=== PATIENT | male | born 1965 | race Caucasian/White ===

== ENCOUNTER → 2021-03-04 | Outpatient (CLI) | payer BC ==
[~2021-03-04] MED LIST: CIPR-17 PO; HYDR1TAB PO; IBUP-15 PO; IBUP-30 PO; OXYC1TAB87 PO; PRM25T PO
== END | disposition home or self-care (01) ==
LOC: PREOP 05:39
PROVIDERS: ATTEND Internal Medicine
DX: Z01.818 Encounter for other preprocedural examination (principal)

== ENCOUNTER 2021-03-12 09:56 | Day surgery (SDC) | payer BC ==
--- NOTE | 2021-03-04 10:01 | HISTORY AND PHYSICAL ---
DATE OF SERVICE: COLONOSCOPY HISTORY AND PHYSICAL DATE OF ADMISSION: 03/12/2021 HISTORY OF PRESENT ILLNESS: The patient is a 55-year-old white male referred by Dr. Valero for his first screening colonoscopy. He does report that his father had colon polyps, in his 70s secondary to prostate cancer. Mother of pancreatic cancer at age of 71. Unaware of any family history for colon cancer. He denies bright red blood per rectum or melena. Reports that he has been in his usual state of reasonable health. He has had no recent change in weight, bowel habit or abdominal pain. FAMILY HISTORY: As noted in the HPI. 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 He denies past smoking history. No significant alcohol intake. PAST MEDICAL HISTORY: Significant for hypertension and hyperlipidemia with no known history of vascular disease and history of obstructive sleep apnea. MEDICATIONS ON ADMISSION: Include fenofibrate 145 mg daily, metoprolol 50 mg daily, meloxicam 15 mg every other day and 5000 units of vitamin D daily. PAST SURGICAL HISTORY: He had kidney stone removal and external hemorrhoid surgery many years ago. REVIEW OF SYSTEMS: CONSTITUTIONAL: Denies night sweats, chills, fever or change in weight. PULMONARY: Denies cough, wheezing or shortness of breath. CARDIOVASCULAR: Denies chest pain, orthopnea, PND or pedal edema. GASTROINTESTINAL: As noted in the HPI. PHYSICAL EXAMINATION: GENERAL: Reveals a fit appearing white male in no acute distress. VITAL SIGNS: Weight 160 pounds and blood pressure 132/80. HEENT: Unremarkable. Sclerae nonicteric. CHEST: Clear to auscultation. CARDIOVASCULAR: Reveals a regular rate and rhythm without murmur, S3 or S4. ABDOMEN: Soft, supple without mass, organomegaly or tenderness. EXTREMITIES: Reveal no cyanosis, clubbing or edema. ASSESSMENT AND PLAN: The patient is set up for screening colonoscopy. Prep instructions and Suprep kit were given and questions were answered. Electronic medical record reviewed. Job ID: [id number] DocumentID: [id number] Dictated Date: 02/24/2021 16:00:23 Oil Dispatcher Date: 02/24/2021 17:02:30 Dictated By: RAMON DUNCAN MD [facility]
[~2021-03-12] VITALS: Ht 170.2 cm; Wt 71.6 kg
[2021-03-12] MEDS ORDERED: LACTATED RINGERS 1,000 ML IV ONE (10:13)
[2021-03-12] MEDS ORDERED: LACTATED RINGERS 1,000 ML IV STA (10:14)
[2021-03-12] MEDS ORDERED: LIDOCAINE JELLY 2% 6 ML SYRINGE MM PRN (10:15)
[2021-03-12 10:20] VITALS: BP 140/86
--- NOTE | 2021-03-12 10:45 | Pre-Op Note & Conscious Sedat ---
Pre-Operative Progress Note H&P Reviewed The H&P was reviewed, patient examined and no changes noted. Date H&P Reviewed: Mar 12, 2021 Time H&P Reviewed: 10:45 Conscious Sedation Pre-Proced ASA Score 2 For ASA 3 and 4: Consider anesthesia and medical clearance. Also, for patients with a history of failed moderate sedation consider anesthesia. Airway Lungs Heart ASA score ASA 1: a normal healthy patient ASA 2: a patient with a mild systemic disease (mid diabetes, controlled hypertension, obesity ASA 3: a patient with a severe systemic disease that limits activity (angina, COPD, prior Myocardial infarction) ASA 4: a patient with an incapacitating disease that is a constant threat to life (CHF, renal failure) ASA 5: a moribund patient not expected to survive 24 hrs. (ruptured aneurysm) ASA 6: a declared brain- patient whose organs are being harvested. For emergent operations, add the letter E after the classification Mallampati Classification Grade 2 Sedation Plan Analgesia, Amnesia, Plan communicated to team members, Discussed options with patient/fam, Discussed risks with patient/fam The patient is an appropriate candidate to undergo the planned procedure, sedation, and anesthesia. The patient immediately re-assessed prior to indication. RAMON DUNCAN MD Mar 12, 2021 10:45
[2021-03-12] MEDS ORDERED: PROPOFOL INJECTION 50 ML IV ONE (11:02)
[2021-03-12] MEDS ORDERED: CHOL2400 MC (11:07)
[2021-03-12] MEDS ORDERED: METO50TA7 PO (11:07)
[2021-03-12] MEDS ORDERED: MELO15TA39 PO (11:07)
[2021-03-12] MEDS ORDERED: FENO145T26 PO (11:07)
[2021-03-12 11:33] VITALS: BP 104/65
[2021-03-12 11:38] VITALS: BP 102/65
[2021-03-12 11:40] VITALS: BP 105/64
[2021-03-12 12:10] VITALS: BP 125/72
--- NOTE | 2021-03-12 12:29 | Anesthesia-General Post-Op ---
MAC Patient Condition Mental Status/LOC: Same as Preop Cardiovascular: Satisfactory Nausea/Vomiting: Absent Respiratory: Satisfactory Pain: Controlled Complications: Absent Post Op Complications Complications None Follow Up Care/Instructions Patient Instructions None needed. Anesthesiology Discharge Order Discharge Order Patient is doing well, no complaints, stable vital signs, no apparent adverse anesthesia problems. No complications reported per nursing. BOZENA TRAN CRNA Mar 12, 2021 12:29
[2021-03-12 12:35] VITALS: BP 125/72
--- NOTE | 2021-03-12 19:07 | OPERATIVE REPORT ---
DATE OF SERVICE: COLONOSCOPY SUMMARY INDICATION FOR THE PROCEDURE: Screening. PROCEDURE: The patient was placed in the left lateral decubitus position. Prior to undergoing a colonoscopy, a digital rectal evaluation was performed. Anal sphincter tone was normal and the perianal reflexes intact. The prostate was normal in size, anodular, and nontender to digital inspection. No abnormalities were noted on digital inspection of the anal canal or distal rectal vault. The colonoscope was then inserted into the rectum and under direct visualization advanced to the cecum. The cecum was identified by identification of the ileocecal valve and cecal strap and appendiceal orifice. Photographic documentation was obtained. Careful inspection was made as the colonoscope was withdrawn. Quality of the prep was fair. FINDINGS: There was no evidence for internal or external hemorrhoids and the rectum was unremarkable. One diminutive 3 mm sessile polyp was removed via cold forceps from the distal sigmoid colon. No other sigmoid colonic abnormalities were noted. No evidence for diverticular disease was noted. The descending colon, splenic flexure, transverse colon, hepatic flexure, ascending colon and cecum were unremarkable. ASSESSMENT: One diminutive polyp was removed via cold forceps from the distal sigmoid colon with an otherwise normal colonoscopy to the cecum including digital evaluation of the prostate. As long as there are no surprises on histopathology report and there continues to be no family history for colon cancer, we would advocate consideration for repeat screening colonoscopy in 10 years. I thank you for the referral of this pleasant gentleman. Job ID: [id number] DocumentID: [id number] Dictated Date: 03/12/2021 11:27:08 Log Rider Date: 03/12/2021 19:07:06 Dictated By: RAMON DUNCAN MD
== END 2021-03-12 12:36 | disposition home or self-care (01) ==
LOC: ENDO 09:56
PROVIDERS: ATTEND Internal Medicine
DX: Z12.11 Encounter for screening for malignant neoplasm of colon (principal); K63.5 Polyp of colon; I10 Essential (primary) hypertension; E78.5 Hyperlipidemia, unspecified; G47.33 Obstructive sleep apnea (adult) (pediatric); Z99.89 Dependence on other enabling machines and devices; Z79.899 Other long term (current) drug therapy
CPT/HCPCS: 88305